=== PATIENT | female | born 1965 | race Caucasian/White ===

== ENCOUNTER 2022-06-05 11:06 | Emergency (ER) | payer OTHER, SELFPAY ==
--- NOTE | ~2022-06-05 | XR_ITS ---
XR elbow RT min 3V 06/05/2022 11:42 INDICATION: Right elbow pain PROCEDURE: 4 views right elbow COMPARISON: No prior studies for comparison. FINDINGS: Fracture, dislocation or subluxation is not identified. No significant joint effusion. The soft tissues appear within normal limits. No foreign bodies are identified. IMPRESSION: 1: NO ACUTE BONE OR JOINT ABNORMALITY IDENTIFIED. Reviewed, dictated and finalized at location A.
--- NOTE | ~2022-06-05 | XR_ITS ---
XR wrist RT min 3V 06/05/2022 11:42 Indication: Right wrist pain after fall Procedure: 4 views right wrist Comparison: No prior studies for comparison. Findings: There is a comminuted intra-articular fracture with impaction involving the distal radius. No other fracture or traumatic malalignment. No significant soft tissue abnormality. No foreign body. There is moderate dorsal soft tissue swelling. Impression: 1: Comminuted nondisplaced intra-articular fracture with impaction involving the distal aspect of the radius. Reviewed, dictated and finalized at location A. Impression: 1: Comminuted nondisplaced intra-articular fracture with impaction involving th e distal aspect of the radius.
[2022-06-05 11:20] VITALS: BP 119/76; PULSE 57; RESP 16; TEMP 37.1; O2SAT 100
--- NOTE | 2022-06-05 11:26 | ED.UPPEXIN ---
HPI - Extremity Injury (Upper) General Chief Complaint: Extremity Injury, Upper Stated Complaint: Fall off on a latter, apprx 2 feet Time Seen by Provider: 06/05/22 11:11 History of Present Illness HPI narrative: 57-year-old female presents emergency room for evaluation of right elbow and right wrist pain. Patient states that she was on a ladder and fell 2 steps. Patient unable to describe her mechanism of injury. States the pain in her wrist and her elbow are worse with movement. Related Data Home Medications Medication Instructions Recorded Confirmed bupropion HCl 100 mg tablet,12 hr mg PO 06/05/22 sustained-release ibuprofen 800 mg tablet mg 06/05/22 levothyroxine 25 mcg tablet mcg 06/05/22 tramadol 50 mg tablet mg 06/05/22 Allergies Allergy/AdvReac Type Severity Reaction Status Date / Time naproxen [From Aleve] Allergy Rash Verified 06/05/22 11:25 Penicillins Allergy Anaphylaxis Verified 06/05/22 11:25 Review of Systems Review of Systems: CONSTITUTIONAL: Denies fever, chills, or sweats. EYES: Denies visual changes, redness, or discharge. ENT: Denies rhinorrhea, congestion, sore throat, or otalgia. CARDIOVASCULAR: Denies chest pain, palpitations, or edema. RESPIRATORY: Denies cough or dyspnea. GASTROINTESTINAL: Denies abdominal pain, nausea, vomiting, or diarrhea. GENITOURINARY: Denies dysuria or hematuria. SKIN: Denies rash or itching. MUSCULOSKELETAL: Reports right wrist and right elbow pain NEUROLOGIC: Denies headache, numbness, dizziness, or weakness. PSYCHIATRIC: Denies anxiety or depression. Exam Narrative: GENERAL: Well-appearing, well-nourished, no physical limitations, and in no acute distress. HEAD: Normocephalic, atraumatic. EYES: Conjunctivae normal, PERRLA and EOMI. CHEST: Clear to auscultation. No respiratory distress. No wheezes rales or rhonchi. No tenderness. HEART: Regular rate and rhythm. No murmur heard. Normal peripheral pulses.m. BACK: No cervical/thoracic/lumbar tenderness, step-offs, bony abnormality; FROM EXTREMITIES: Right elbow: Tenderness over the olecranon process. Able to extend without pain. Pain with supination and pronation. No obvious bony abnormality. Right wrist: Soft tissue swelling over the distal ulna, limited range of motion due to pain. No obvious bony abnormality. Neurovascular is intact distally SKIN: Warm, dry, no rash. No noted wounds NEURO: No focal deficits. Alert and oriented x3. MAEW. CN's II-XI intact bilaterally, normal gait PSYCH: Cooperative. Normal mood and affect. Course Vital Signs Vital signs: Vital Signs Temperature 37.1 C 06/05/22 11:20 Pulse Rate 57 L 06/05/22 11:20 Respiratory Rate 16 06/05/22 11:20 Blood Pressure 119/76 06/05/22 11:20 Pulse Oximetry 100 06/05/22 11:20 Oxygen Delivery Room Air 06/05/22 11:20 Temperature 37.1 C 06/05/22 11:20 Pulse Rate 57 L 06/05/22 11:20 Respiratory Rate 16 06/05/22 11:20 Blood Pressure 119/76 06/05/22 11:20 Pulse Oximetry 100 06/05/22 11:20 Oxygen Delivery Room Air 06/05/22 11:20 MDM - Extremity Injury (Upper) Imaging Data Radiologist's impression: Impressions Wrist X-Ray 06/05/22 11:49 Impression: 1: Comminuted nondisplaced intra-articular fracture with impaction involving the distal aspect of the radius. Elbow X-Ray 06/05/22 11:52 IMPRESSION: 1: NO ACUTE BONE OR JOINT ABNORMALITY IDENTIFIED. Discharge Plan Discharge Clinical Impression: Fracture of wrist Patient Disposition: Home, Self-Care Condition: Stable Instructions: Antibiotic Form, Wrist Fracture in Adults (ED), Splint Care (ED) Additional Instructions: May take ibuprofen along with your hydrocodone for pain. Leave splint on until you follow-up with orthopedics. Call Dr. Robin's office today for follow-up evaluation. Prescriptions: New hydrocodone-acetaminophen 5-325 mg tablet 1 tablet PO Q8H PRN (Reason: pain) Qty: 20 0RF
--- NOTE | 2022-06-05 12:29 | PC.NURSE ---
splint and sling applied per EDP orders. Patient tolerated well and can move all digits and has good perfusiopn
== END 2022-06-05 12:41 | disposition home or self-care (01) ==
PROVIDERS: Emergency Provider Nurse Practitioner Family
DX: S52.501A Unspecified fracture of the lower end of right radius, initial encounter for closed fracture (principal); W11.XXXA Fall on and from ladder, initial encounter
CPT/HCPCS: 29125; 73080; 73110; 99284; A4565

== ENCOUNTER 2024-11-14 10:39 | Emergency (ER) | payer OTHER, SELFPAY ==
[2024-11-14 10:52] VITALS: BP 142/79; PULSE 82; RESP 16; TEMP 36.6; O2SAT 99
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
== END 2024-11-14 11:30 | disposition home or self-care (01) ==
PROVIDERS: Emergency Provider Nurse Practitioner
DX: S39.012A Strain of muscle, fascia and tendon of lower back, initial encounter (principal); S16.1XXA Strain of muscle, fascia and tendon at neck level, initial encounter; V79.50XA Passenger on bus injured in collision with unspecified motor vehicles in traffic accident, initial encounter; E03.9 Hypothyroidism, unspecified
CPT/HCPCS: 99213; G0463